=== PATIENT | male | born 1975 | race Two or more races ===

== ENCOUNTER → 2021-08-11 | Outpatient (CLI) | payer BC ==
--- NOTE | 2021-08-11 12:10 | KCIC ---
EXAM: MRI LEFT KNEE DATE: 08/11/2021 8:35 AM CLINICAL INDICATION: INJURY OF ARTICULAR CARTILAGE OF LT KNEE- Left anterior knee pain x one month. COMPARISON: 01/04/2021 TECHNIQUE: Multiplanar, multisequence MRI of the LEFT knee was performed without contrast. FINDINGS: Small knee joint effusion. No Holman's cyst. ACL and PCL are intact. MCL, fibular collateral ligament, biceps femoris and IT band are intact. Popliteus is intact, normal in signal and morphology. Extensor mechanism is intact. Neutral patellar tracking. Medial meniscus: Mild deformity posterior horn-root junction medial meniscus with trace irregularity of the free edge. Lateral meniscus: Intact. Full-thickness cartilage defect at the lateral aspect of the medial femoral condyle measuring approxi mately 8 mm in transverse dimension with subchondral edema, new compared to 01/04/2021. Chondral thinn ing with subchondral edema anterior aspect of the lateral tibial plateau. No fracture or osteonecrosis. Mild edema of the Hoffa's fat pad, postsurgical. IMPRESSION: 1. Trace free edge blunting of the posterior horn-root junction medial meniscus, possibly prior part ial meniscectomy change although given the trace irregularity along the free edge, re-tear is also a consideration. 2. Left knee joint osteoarthritis. Full-thickness cartilage defect medial femoral condyle with subch ondral edema. Electronically signed by: Nikolas Hester MD (08/11/2021 12:08 PM) [id number]
== END ==
LOC: KCIC MRI 08:20
PROVIDERS: ATTEND Physician Assistant
DX: S89.82XA Other specified injuries of left lower leg, initial encounter (principal); M17.12 Unilateral primary osteoarthritis, left knee; R60.0 Localized edema; M25.462 Effusion, left knee; X58.XXXA Exposure to other specified factors, initial encounter; Y93.89 Activity, other specified; Y92.89 Other specified places as the place of occurrence of the external cause; Y99.8 Other external cause status
CPT/HCPCS: 73721